=== PATIENT | female | born 1975 | race Caucasian/White ===

== ENCOUNTER 2021-04-18 11:43 | Emergency (ER) | payer MEDICARE ==
[2021-04-18 13:37] LABS: #Eosinphils 0.1 10x3/uL (0.0-0.5); #Monocytes 0.7 10x3/uL (0.0-1.1); #Neutrophils 4.6 10x3/uL (1.5-8.4); %Basophils 0.5 % (0.0-2.0); %Lymphocytes 26.1 % (18.0-47.0); %Monocytes 9.9 % (0.0-10.0); %Neutrophils 62.1 % (40.0-75.0); Hemoglobin 12.6 g/dL (12.0-15.5); Mean Corpuscular HGB CONC 32.8 g/dL (32.0-36.0); Mean Corpuscular Hemoglobin 29.4 pg (27.0-33.0); Mean Corpuscular Volume 89.7 fl (81.6-98.3); Mean Platelet Volume 10.5 fl (7.4-10.4); Platelet Count 245 10x3/uL (150-450); RBC Distribution Width 14.3 % (11.5-14.5); Red Blood Cell (RBC) Count 4.28 10x6/uL (3.90-5.03); White Blood Cell (WBC) Count 7.4 10x3/uL (3.5-10.5)
[2021-04-18 13:52] LABS: Anion Gap 12 mmol/L (10-20); BUN (Urea Nitrogen) 14 mg/dL (7.0-18.7); Calc. Creatinine Clearance 0 mL/min (70-130); Calcium 9.6 mg/dL (7.8-10.44); Carbon Dioxide 27 mmol/L (22-29); Chloride 105 mmol/L (98-107); Glucose 91 mg/dL (70-105); Potassium 3.9 mmol/L (3.5-5.1); Sodium 140 mmol/L (136-145)
[2021-04-18 14:17] LABS: Bilirubin Neg (Negative); Blood, Urine Negative (Negative); Glucose, Urine (Dipstick) Normal (Negative); Ketone, Urine Negative (Negative); Leukocyte 500 (Negative); Nitrite Positive (Negative); Protein, Urine (Dipstick) Negative (Neg-Trace); Urobilinogen Normal mg/dL (Less than 2)
[2021-04-18 14:19] LABS: Clarity Hazy (Clear)
[2021-04-18 14:36] LABS: Bacteria/HPF 4+ HPF (None Seen); RBC/HPF None Seen HPF (0-3); Squamous Epithelial 0-3 HPF (0-3)
[2021-04-18 15:38] LABS: Actual Bicarbonate (HCO3v) 26 mEq/L (22-28); Base Excess 1.4 mEq/L (-2.0 to +3.0); Calcium, Ionized (venous) 1.13 mmol/L (1.16-1.32); Chloride (VBG) 103 mmol/L (98-106); Hemoglobin (Hb) 13.4 g/dL (11.7-16.0); Potassium (VBG) 3.99 mmol/L (3.70-5.30); Puncture Site Other Site; RapidComm Collect By LAB; Sodium 138.1 mmol/L (133-146); pH (venous) 7.41 (7.32-7.43)
== END 2021-04-18 18:38 | disposition home or self-care (01) ==
LOC: CSHERS 11:43
DX: R53.83 Other fatigue (principal); R53.1 Weakness; R26.9 Unspecified abnormalities of gait and mobility; I95.9 Hypotension, unspecified
CPT/HCPCS: 36415; 71045; 80048; 81003; 81015; 82805; 83880; 84443; 84484; 85025; 87040; 87077; 87086; 87186; 93005

== ENCOUNTER 2021-04-26 12:00 | Outpatient (CLI) | payer MEDICARE ==
[2021-04-27 11:19] LABS: SARS-CoV-2 PCR by NAA Not Detected (NotDetected)
== END 2021-04-26 12:01 | disposition home or self-care (01) ==
LOC: CSHLAB 12:00
PROVIDERS: ATTEND Internal Medicine Pulmonary Disease
DX: Z20.822 Contact with and (suspected) exposure to COVID-19 (principal)
CPT/HCPCS: U0003; U0005

== ENCOUNTER 2021-05-01 10:37 | Outpatient (CLI) | payer MEDICARE ==
[2021-05-01 12:54] LABS: ALV-art Gradient -3.195 mmHg (0-20); Actual Bicarbonate (HCO3a) 27.1 mEq/L (22-28); Base Excess (BEa) 5.6 mEq/L (-2.0 to +3.0); CO2 Tension 30.1 mmHg (35.0-45.0); Calcium, Ionized (arterial) 1.06 mmol/L (1.12-1.30); Carboxyhemoglobin (COHb) 1.1 gm% (0.0-3.0); Hemoglobin (Hb) 13.5 g/dL (12.0-16.0); O2 Tension (PaO2), arterial 115.3 mmHg (80.0-100.0); Potassium - ABG Lab 3.7 mmol/L (3.70-5.30); Puncture Site LRA; pH, Arterial 7.57 (7.35-7.45)
== END 2021-05-01 10:38 | disposition home or self-care (01) ==
LOC: CSHCP 10:37
PROVIDERS: ATTEND Internal Medicine Pulmonary Disease
DX: R06.02 Shortness of breath (principal)
CPT/HCPCS: 36600; 82805; 94010; 94729; 94760

== ENCOUNTER 2022-11-30 14:27 | Outpatient (CLI) | payer MEDICARE | END 2022-11-30 14:28 | disposition home or self-care (01) | LOC: CSHRAD 14:27 | PROVIDERS: ATTEND Family Medicine | DX: R05.9 Cough, unspecified (principal) | CPT/HCPCS: 71046 ==

== ENCOUNTER → 2024-04-01 | Outpatient (CLI) | payer MEDICARE | LOC: CSHMRI 13:19 | PROVIDERS: ATTEND Family Medicine | DX: E22.1 Hyperprolactinemia (principal); J34.1 Cyst and mucocele of nose and nasal sinus | CPT/HCPCS: 70553 ==